=== PATIENT | female | born 1950 | race Caucasian/White ===

== ENCOUNTER 2019-06-14 20:00 | Inpatient (IN) | payer MEDICARE, OTHER, MEDICAID ==
[~2019-06-14] VITALS: Ht 170.2 cm; Wt 100.7 kg
[~2019-06-14 20:00] MED LIST: ALEVE220 MG PO; APAP W/CODEINE1 TA2 PO; AZITHROMYCIN 2250 MG PO; B COMPLEX1 EAC1 PO; CALCIUM 600 +1 EAC1 PO; CARVEDILOL3.125 MG PO; CIPRO500 MG PO; COLCHICINE0.6 M1 PO; FLEXERIL PO; GLUCOSAMINE HC500 MG PO; HYDROCODON-ACE1 EAC7 PO; IBUPROFEN 600600 M1 PO; INDOMETHACIN 2525 MG PO; IRON325 PO; KLOR-CON 1010 MEQ PO; LASIX 40 MG TAB40 M2 PO; LEVAQUIN 500 M500 M2 PO; LISINOPRIL5 MG PO; METHOTREXATE 22.5 MG PO; OXYCODONE HCL 55 MG PO; OXYCODONE HCL15 MG PO; PAXIL10 MG PO; PERCOCET PO; PREDNISONE 10 M10 M1 PO; ROXICODONE5 M1 PO; TYLENOL325 MG PO; ULTRAM 50MG TAB50 MG PO; ULTRAM PO; UNICOMPLEX M TA1 TA1 PO; ZPAK PO
[2019-06-14 20:14] VITALS: BP 191/81
[2019-06-14 20:54] LABS: ABSOLUTE EOSINOPHILS 0.1 thou/uL (0.0-0.7); ABSOLUTE LYMPHOCYTES 1.6 thou/uL (0.8-5.3); ABSOLUTE MONOCYTES 0.6 thou/uL (0.0-1.2); ABSOLUTE NEUTROPHILS 3.6 thou/uL (1.6-8.1); BASOPHILS 0.3 %; HEMATOCRIT 35.8 % (37.0-47.0); HEMOGLOBIN 11.8 gm/dL (12.0-15.0); LYMPHOCYTES 26.6 %; MCH 27.2 pg (26.0-34.0); MCHC 32.9 g/dL (28.0-37.0); MCV 82.8 fL (80.0-100.0); MONOCYTES 10.1 %; MPV 8.7 fl. (7.2-11.1); NUCLEATED RBCS 0 /100WBC; PLATELET COUNT* 207 thou/uL (150-400); RBC 4.32 mil/uL (4.20-5.00); WBC 5.9 thou/uL (4.0-11.0)
[2019-06-14 21:01] LABS: CALCIUM 9.6 mg/dL (8.5-10.1); CREATININE 0.7 mg/dL (0.6-1.3); POTASSIUM 3.7 mmol/L (3.5-5.1)
[2019-06-14 21:06] LABS: ALBUMIN 3.2 g/dL (3.4-5.0); TOTAL BILIRUBIN 0.3 mg/dL (<0.1-1.0); TOTAL PROTEIN 8.5 g/dL (6.4-8.2)
[2019-06-14 22:09] LABS: ESR (SEDRATE) 80 mm/hr (0-30)
[2019-06-14 23:12] VITALS: BP 195/93
[2019-06-15] VITALS: BP 148/82
--- NOTE | 2019-06-15 07:40 | NUR ---
PT RECIEVED FROM ED IN ROOM 315. ALERT AND ORIENTED X4 BUT IS ANXIOUS. C/O PAIN, MEDICATIOIN GIVEN PER EMAR. CALL LIGHT WITHIN REACH AND BED IN LOW POSITION. PICTURE TAKEN OF RT ANKLE AND PLACED IN CHART. PT IS WEARING DIAPERS, REFUSES TO TAKE IT OFF, EDUCATION GIVEN, NEEDS REINFORCEMENT. HOURLY ROUNDING DONE FOR PT SAFETY.
--- NOTE | 2019-06-15 11:51 | NUR ---
INITIAL ASSESSMENT: Pt evaluated for d/c planning needs. Reviewed chart and spoke with nurse and pt. Pt is alert. Pt states she lives alone in house and was independent with ADL's prior to admission to the hospital. Pt said she uses walker or cane for ambulation. Found phone number listed in chart for daughter. Called number listed--it is not a working number. Called phone number listed for pt's mother with no answer. Pt has history of bipolar disorder, depression and schizophrenia. Will remain available to assist as needed and make further attempts to find family.
[2019-06-15 15:00] VITALS: BP 149/60
--- NOTE | 2019-06-15 17:12 | NUR ---
PT REMAINED ALERT AND ORIENTED. PT C/O PAIN, MEDS GIVEN ORDERED. PT C/O CHEST PAIN, LABS AND EKG ORDERED. AWAITING LAB RESULTS, EKG NORMAL. PT REFUSED BLOOD PRESSURE TO BE TAKEN. ATTEMPTED BP AGAIN MANUALLY. PT WOULD NOT STAY STILL AND CRIED, BP READ. PT HAS BEEN TEARFUL ALL DAY, WILL ATTEMPT TO SWAB ANKLE AND APPLY PRESSURE DRESSING. FALL RISK PRECAUTIONS IN PLACE. HOURLY ROUNDING COMPLETED. WILL CONTINUE TO MONITOR.
[2019-06-15 20:05] VITALS: BP 179/78
--- NOTE | 2019-06-15 23:07 | NUR ---
PATIENT REFUSED CT SCAN ORDERED STAT BY DR NELSON. SHE REFUSES TO GET OUT OF BED AND TRY TO GET TO THE WHEELCHAIR AND BECAME EXTREMELY AGITATED. I CALLED DR NELSON AT 2300 AND LET HER KNOW.
[2019-06-16 04:55] VITALS: BP 128/78
[2019-06-16 05:14] LABS: HEMATOCRIT 36.1 % (37.0-47.0); HEMOGLOBIN 11.7 gm/dL (12.0-15.0); MCH 26.9 pg (26.0-34.0); MCHC 32.5 g/dL (28.0-37.0); MCV 82.8 fL (80.0-100.0); MPV 9.2 fl. (7.2-11.1); RBC 4.36 mil/uL (4.20-5.00); RDW-CV 15.4 % (10.5-14.5); WBC 7.5 thou/uL (4.0-11.0)
[2019-06-16 05:22] LABS: ALBUMIN 2.9 g/dL (3.4-5.0); CALCIUM 9.2 mg/dL (8.5-10.1); CREATININE 0.6 mg/dL (0.6-1.3); MAGNESIUM 2.1 mg/dL (1.8-2.4); POTASSIUM 3.8 mmol/L (3.5-5.1); TOTAL BILIRUBIN 0.6 mg/dL (<0.1-1.0); TOTAL PROTEIN 8.4 g/dL (6.4-8.2)
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
[2019-06-16 16:00] VITALS: BP 165/85
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
[2019-06-16 21:12] VITALS: BP 173/86
[2019-06-17 03:58] LABS: HEMATOCRIT 32.6 % (37.0-47.0); HEMOGLOBIN 10.7 gm/dL (12.0-15.0); MCH 27.2 pg (26.0-34.0); MCHC 32.8 g/dL (28.0-37.0); MPV 9.3 fl. (7.2-11.1); RBC 3.93 mil/uL (4.20-5.00); RDW-CV 15.3 % (10.5-14.5); WBC 6.1 thou/uL (4.0-11.0)
[2019-06-17 04:28] LABS: CALCIUM 8.9 mg/dL (8.5-10.1); CREATININE 0.6 mg/dL (0.6-1.3); POTASSIUM 3.7 mmol/L (3.5-5.1)
--- NOTE | 2019-06-17 05:14 | NUR ---
PT WAS ANXIOUS AT TIMES BUT NOT MUCH THE NIGHT BEFORE. SHE DID RECEIVE PAIN MEDICATION Q6 AND 1 DOSE OF MORPHINE 4MG AT 0130. SHE SAT ON THE SIDE OF BED OFTEN SHE SAID THIS HELPED WITH HER BREATHING AND CHEST PAIN. SHE STILL REPORTS PAIN AT 10/10. EDEMA IS IMPROVING AND SHE RECEIVED HER VANCOMYCIN DOSE OVERNIGHT. SHE REMAINED CALM MOST OF THE NIGHT AND WAS ABLE TO SLEEP OFF AND ON. WILL CONTINUE TO MONITOR.
[2019-06-17 07:20] VITALS: BP 180/100
--- NOTE | 2019-06-17 13:42 | NUR ---
Nutrition: Pt admitted with ankle ulcer. She stated she has had it for 3 years. She eating well. She takes myriad MVI supplements. Albumin is 2.9. We discussed adding a protein supplement, and she agreed to Luis TID. She told me a bit about her diet at home. Educated on benefits of Luis and wound healing. Mild risk at this time. Will f/u per protocol.
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
[2019-06-17 16:00] VITALS: BP 171/71
--- NOTE | 2019-06-17 18:44 | NUR ---
ASSESSMENT COMPLETE. PT HAD WOUND CARE WITH WOUND RN. MRI OF ANKLE COMPLETED THIS AFTERNOON. PRN PAIN MEDICATION GIVEN NEEDED. PT GIVEN IV VANC SCHEDULED, TROUGH COMPLETED. KPAD STARTED FOR PAIN CONTROL, RELIEF REPORTED. MEDICAL RECORD REQUESTS SENT. PT INCONT. LEGS ELEVATED. PT IS ON ROOM AIR, VSS. TOLERATING MEALS. SEE ASSESSMENT AND VITALS FOR OTHER DETAILS. CALL LIGHT WITHIN REACH. WILL CONTINUE PLAN OF CARE
[2019-06-17 20:46] VITALS: BP 152/69
[2019-06-18 04:57] LABS: HEMATOCRIT 31.4 % (37.0-47.0); HEMOGLOBIN 10.3 gm/dL (12.0-15.0); MCH 27.1 pg (26.0-34.0); MCHC 32.8 g/dL (28.0-37.0); MCV 82.5 fL (80.0-100.0); MPV 9.2 fl. (7.2-11.1); RBC 3.81 mil/uL (4.20-5.00); WBC 6.5 thou/uL (4.0-11.0)
[2019-06-18 05:13] LABS: ALBUMIN 2.1 g/dL (3.4-5.0); CALCIUM 8.4 mg/dL (8.5-10.1); CREATININE 0.6 mg/dL (0.6-1.3); MAGNESIUM 1.9 mg/dL (1.8-2.4); POTASSIUM 3.7 mmol/L (3.5-5.1); TOTAL BILIRUBIN 0.6 mg/dL (<0.1-1.0); TOTAL PROTEIN 6.8 g/dL (6.4-8.2)
--- NOTE | 2019-06-18 06:31 | NUR ---
VSS RA. MEDS GIVEN ORDERED. MORPHINE AND OXY IR GIVEN FOR PAIN EVERY 4 HOURS PER PT REQUEST. LEGS ELEVATED ON PILLOW. DRESSING INTACT. HOURLY ROUNDING COMPLETED. WILL CONTINUE TO MONITOR.
[2019-06-18 07:41] VITALS: BP 146/69
--- NOTE | 2019-06-18 08:36 | EKG ---
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1950 Requested By: Nina Guo Order Number: [id number] Reading MD: Ramesh Serrano Measurements Intervals [place] Rate: 93 P: 60 IA: 143 QRS: 46 QRSD: 87 T: 50 QT: 341 QTc: 425 Interpretive Statements Sinus rhythm Atrial premature complex Abnormal R-wave progression, early transition Compared to ECG 09/10/2015 12:22:44 Atrial premature complex(es) now present ST (T wave) deviation no longer present Myocardial infarct finding no longer present Electronically Signed On 06-18-2019 8:36:12 CDT by Ramesh Serrano [email or web address] <ELECTRONICALLY SIGNED> By: Ramesh Serrano MD, FACC 06/18/19 0836 1646 1646 Ramesh Serrano MD, FAC /EPI
--- NOTE | 2019-06-18 17:01 | NUR ---
ASSESSMENT COMPLETE. WOUND CARE COMPLETE. DR CORONA CONSULT. NEW IV PLACED IN LEFT FA BY INFUSION NURSE. PT IS ON ROOM AIR, VSS. Q2 TURN. INCONT OF URINE. PAIN MEDICATION GIVEN NEEDED. PT TOLERATING MEALS, DENIESN N/V. SEE ASSESSMENT AND VITALS FOR OTHER DETAILS. CALL LIGHT WITHIN REACH, WILL CONTINUE PLAN OF CARE
[2019-06-18 23:45] VITALS: BP 158/77
--- NOTE | 2019-06-19 07:01 | NUR ---
PATIENT SLEPT MOST OF THE NIGHT. IV VANC WAS GIVEN ORDERED. PATIENT WAS GIVEN PAIN MEDICINE ABOUT EVERY THREE HOURS. DRESSING TO RIGHT ANKLE WAS CHANGED THIS MORNING BY SURGERY RESIDENT. WILL CONTINUE TO MONITOR.
[2019-06-19 08:10] VITALS: BP 142/70
--- NOTE | 2019-06-19 12:01 | CON ---
[address] [address] CONSULTATION Name: PRISCILLA MURCIA Room: [address] IN M.R.#: [id number] Admission: 06/14/19 Attend Phys: Stanley Barnes MD Discharge: Date of : 54 Report #: [id number] THIS REPORT FOR: //name// CC: Stanley Merino DATE OF SERVICE: 06/18/2019 INFECTIOUS DISEASE CONSULTATION ATTENDING PHYSICIAN: Dr. Guo. REASON FOR EVALUATION: Chronic ulceration involving the lateral malleolus, right ankle, complicated by inflammatory eruption. HISTORY OF PRESENT ILLNESS: Chart reviewed, patient examined. This is a 69-year-old woman with known history of rheumatoid arthritis, who has got this severe crippling disease, particularly involving her hands. She has been on methotrexate for an extended period of time, and developed an ulcer that she dates back at least 3 years. She does not recall any antecedent injury. She attributes it to the arthritis and its complications, perhaps related to the medicine as well. She has been utilizing some topical therapy; however, it became increasingly painful for her, so she eventually sought help. She presented to the Emergency Room noting that it had worsened over the last couple of months including increasing in size. She does take narcotic analgesics for pain. It is not clear if she has had any fever or chills. She states she eats very organic diet. Weight has been relatively stable. Denies any pulmonary complaints, although she does have some chest or epigastric discomfort with deep breathing. She was empirically started on antimicrobials, ceftriaxone and vancomycin. ALLERGIES: None known. CURRENT MEDICATIONS: Include oxycodone, buspirone, tramadol, vancomycin, ceftriaxone, p.r.n. analgesics, and antiemetics. PAST MEDICAL HISTORY: As noted above, rheumatoid arthritis, history of TIAs, palpitations, anxiety, bipolar disease, schizophrenia. SOCIAL HISTORY: Nonsmoker, no ethanol, no illicit drug use. FAMILY HISTORY: Noncontributory. REVIEW OF SYSTEMS: Otherwise unremarkable with the exception of the above. PHYSICAL EXAMINATION: [place] [address] CONSULTATION Name: PRISCILLA MURCIA Room: [address]#: [id number] Admission: 06/14/19 Attend Phys: Stanley Barnes MD Discharge: Date of : 54 Report #: [id number] GENERAL: She is alert, cooperative, and appropriate. She has somewhat tangential thinking. She is quite lucid. She is pleasant, cooperative, appears to be reasonably well nourished. VITAL SIGNS: Temperature 97.8, pulse 80, respirations 14, blood pressure 146/69. SKIN: Warm, dry. HEENT: Normocephalic. Extraocular muscles intact. NECK: Supple. LUNGS: Generally clear to auscultation. HEART: Regular. I do not appreciate any murmur. ABDOMEN: Soft. EXTREMITIES: I did inspect her ulceration. She got a somewhat irregular margin of the ulcer involving the right lateral malleolus. A moderate degree of debris and exudate, it is adherent slough, there is some degree of granulation tissue. Margins are moderately erythematous, is quite tender to palpation. She has clear deformities of her hands in particular due to the rheumatoid arthritis, subluxations. LABORATORY AND X-RAY DATA: Electrolytes: Sodium 137, potassium 3.4, chloride 102, bicarbonate is 26, BUN and creatinine 8 and 0.6, glucose of 101. Albumin is 2.1. Total protein 6.8. CBC: White count 6.5, H and H 10.3 and 31.4, platelets of 182. Right ankle MRI showed a large shallow ulcer on the lateral aspect of the ankle without underlying evidence of abscess or osteomyelitis. CTA chest, PE protocol, no evidence of pulmonary embolus. ASSESSMENT AND PLAN: Chronic ulceration of the right lateral malleolus ____ exclude an infectious process, although she is somewhat resistant to a general approach. She is agreeable to IV antibiotics, which we will continue for the moment. She voices likelihood that she would not take oral antibiotics on discharge. She at this point refused surgical debridement. Try some topical therapy. Seemingly, she has a reasonably good diet. Try to optimize her nutritional status. Continue compression, it may help in terms of working at the margins. <ELECTRONICALLY SIGNED> By: Alejo Betts MD 06/19/19 1201 1046 [id number] Betts MD /nt
[2019-06-19 16:07] VITALS: BP 130/54
--- NOTE | 2019-06-19 19:39 | NUR ---
PATIENT RESTING IN BED. PATIENT IS UP TO DANGLE BY SELF. PATIENT REFUSES TO GET OUT OF BED TO CHAIR OR TO WALK. PATIENT REFUSED PHYSICAL THERAPY. PATIENT IS UP MAX ASSIST WITH GAIT BELT TO COMMODE. PTIENTHAD BOWEL MOVEMENT X 1, AND IS INCONTINENT OF URINE. PATIENT HAS COMPLAINTS OF CHRONIC ARTHRITIS PAIN, TREATED WITH OXYCODONE AND MORPHINE. PATIENT DENIES ANY NEEDS AT THIS TIME. CALL LIGHT WITHIN REACH.
[2019-06-20 00:01] VITALS: BP 127/61
--- NOTE | 2019-06-20 06:38 | NUR ---
PATIENT SLEPT MOST OF THE NIGHT. IV VANC WAS GIVEN ORDERED. PATIENT WAS GIVEN PAIN MEDICINE THREE TIMES THIS SHIFT. DRESSING TO R ANKLE WAS CHANGED THIS MORNING BY SURGERY RESIDENT. WILL CONTINUE TO MONITOR.
[2019-06-20 07:55] VITALS: BP 143/73
[2019-06-20 09:32] VITALS: BP 127/61
[2019-06-20 16:00] VITALS: BP 130/68
--- NOTE | 2019-06-20 16:41 | NUR ---
SW received consult and several messages about evaluation of SNF for pt. SW met with pt to discuss dc recommendation and pt said "that won't happen". Pt wants to refuse IV abx; SW spoke with Dr Betts who plans to transition to po abx at dc. SW discussed reasoning for SNF and pt said that she cannot go because she cannot pay for SNF and SW explained insurance pays for SNF stay as part of her Medicare benefits, but pt insists that she does not have insurance. Pt said that she needs to go home and pay her bills. Then pt asked SW what day it was and when told, pt said she needed her phone so SW provide pt phone to her and pt proceeded to look through her phone while SW discussed following up again with pt in the morning to continue to discuss safe dc planning and possible SNF placement. SW discussed with pt nurse; pt nurse stated that pt had agreed to possible SNF with Dr Guo earlier in the day.
--- NOTE | 2019-06-20 19:36 | NUR ---
PATIENT RESTING IN BED. PATIENT HAS COMPLAINTS OF CHRONIC ARTHRITIC PAIN, TREATED WITH MORPHINE AND OXYCODONE. PATIENT IV INFILTRATED AGAIN TODAY. PATIENT REFUSES PICC LINE, THOMPSON WITH INFUSION STARTED NEW IV. PATIENT REFUSED TO WORK WITH PHYSICAL THERAPY TODAY. PATIENT IS UP MAX ASSIST WITH GAIT BELT FOR TRANSFERS TO COMMODE. PATIENT REFUSES CHAIR. PATIENT DENIES ANY NEEDS AT THIS TIME. CALL LIGHT WITHIN REACH.
[2019-06-20 20:02] VITALS: BP 111/50
[2019-06-21 05:04] LABS: HEMOGLOBIN 10.3 gm/dL (12.0-15.0); MCH 26.6 pg (26.0-34.0); MCHC 32.2 g/dL (28.0-37.0); MCV 82.6 fL (80.0-100.0); MPV 9.2 fl. (7.2-11.1); RBC 3.88 mil/uL (4.20-5.00); WBC 4.9 thou/uL (4.0-11.0)
[2019-06-21 05:07] LABS: CALCIUM 9.3 mg/dL (8.5-10.1); CREATININE 0.6 mg/dL (0.6-1.3); MAGNESIUM 2.2 mg/dL (1.8-2.4)
--- NOTE | 2019-06-21 05:12 | NUR ---
PT SEEMED LESS ANXIOUS THAN PREVIOUS SHIFTS OVERNIGHT. SHE DID TAKE HER PAIN MEDS ON SCHEDULE AND PRN AND RECEIVED VANCOMYCIN. SHE WAS ABLE TO REST AND GET SOME SLEEP. HER MAIN CONCERN WAS WORKING WITH THERAPY TODAY AND THE PAIN SHE WILL FEEL. WE DISCUSSED PAIN MANAGEMENT AND IMPORTANCE OF GETTING UP/ WILL CONTINUE TO MONITOR
[2019-06-21 08:00] VITALS: BP 130/59
[2019-06-21] MEDS ORDERED: FLUCONAZOLE 10100 MG PO (09:05)
[2019-06-21] MEDS ORDERED: TRAMADOL 50 MG50 MG PO (09:05)
[2019-06-21] MEDS ORDERED: BUSPIRONE HCL5 MG PO (09:05)
[2019-06-21 10:43] VITALS: BP 127/61
[2019-06-21 15:51] VITALS: BP 141/57
[2019-06-21 16:40] VITALS: BP 127/61
[2019-06-21] MEDS ORDERED: AMOXICILLIN 50500 M1 PO (16:47)
--- NOTE | 2019-06-21 16:48 | NUR ---
Pt to dc to recommendation of SNF today; pt is now in agreement with plan for SNF after all. Pt okay with a facility in [place]. ALAN sent referral to [facility] and to [facility]. [facility] denied and [facility] accepted. ALAN sent final orders/dc summary to [facility]. Pt nurse aware and chart copied for continuation of care. ALAN arranged transportation through [employer] for [place]eps[place] pick[place] 5:30 to 6:00 pm. ALAN met with pt to discuss details of dc plan; pt okay with plan and expressed that she was anxious. ALAN informed pt nurse to follow up with pt. [facility] ph [phone]
--- NOTE | 2019-06-21 17:55 | NUR ---
PT A&OX4 VSS. WOUND DRESSING CHANGED TODAY. IV REMOVED, NO SWELLING/REDNESS AT SITE. PT DECLINED TRAMADOL, BUSPAR AND BENEDRYL PRIOR TO DC FROM THIS FLOOR. PT PUT ON HER DRESS WITHOUT ASSISTANCE. PT ASSISTED TO STAND WITH GAIT BELT AND WALKER. PT TRANSPORTED FROM UNIT IN WC WITH [employer] INSTALLER. PT LEAVES UNIT WITH ALL PERSONAL BELONGINGS. REPORT CALLED TO RONAL BETH AT [facility] [phone]. WOUND CARE INSTRUCTIONS GIVEN IN REPORT TO RONAL. PAPERWORK GIVEN TO [employer] INST[employer]ER.
== END 2019-06-21 15:47 | DRG 603 ==
LOC: M.ERS 20:00 → M.TBA-ER 21:58 → M.3W 21:58
PROVIDERS: Emergency Medicine; Internal Medicine; ADMIT Internal Medicine
DX: L03.115 Cellulitis of right lower limb (principal); R45.851 Suicidal ideations; L97.319 Non-pressure chronic ulcer of right ankle with unspecified severity; F41.9 Anxiety disorder, unspecified; M06.9 Rheumatoid arthritis, unspecified; F31.9 Bipolar disorder, unspecified; I87.2 Venous insufficiency (chronic) (peripheral); G89.29 Other chronic pain; B95.5 Unspecified streptococcus as the cause of diseases classified elsewhere; B96.89 Other specified bacterial agents as the cause of diseases classified elsewhere; F41.1 Generalized anxiety disorder; Z86.73 Personal history of transient ischemic attack (TIA), and cerebral infarction without residual deficits; Z79.899 Other long term (current) drug therapy

== ENCOUNTER 2021-02-05 16:44 | Inpatient (IN) | payer OTHER, MEDICAID ==
[~2021-02-05] VITALS: Ht 172.7 cm; Wt 99.8 kg
--- NOTE | ~2021-02-05 | CON ---
[address] [address] CONSULTATION Name: PRISCILLA MURCIA Room: [address]#: [id number] Admission: 02/05/21 Attend Phys: Nina Guo MD Discharge: 02/18/21 Date of : 54 Report #: [id number] THIS REPORT FOR: cc: Blaine Merino. Ratnesh. MD Claire Martinez Raymond M. DPM ~ DOC #: [id number] Chema Rangel MD DATE OF CONSULTATION: 02/08/2021 INTRODUCTION: This is a 71-year-old white female who has been admitted for a fall out of bed. I am actually seeing her for a chronic right leg ulcer. HISTORY OF PRESENT ILLNESS: This is a 71-year-old white female who has a chronic wound to the right lateral ankle, significant length in size x last 6 months at least. The patient is very combative with any type of discussion. She is very adamant about the type of treatment she would like to have and also seemingly especially combative to any physicians. She is asking for no physicians to see her because of the cost associated with any kind of evaluation. PAST MEDICAL HISTORY: Noted for rheumatoid arthritis, anxiety and heart palpitations. MEDICATIONS: Currently are fluconazole, Buspirone, and she says oxycodone 5 mg every 6 hours, but right now she is getting 15 mg every 6 hours. DISCONTINUED MEDICATIONS: Methotrexate and Bactrim. ALLERGIES: No known drug allergies. PREVIOUS SURGERIES: Unremarkable. FAMILY HISTORY: Noncontributory. SOCIAL HISTORY: The patient is currently living at home, is anti-Western medicine. Her default is God for her treatment plan. Social history includes no history of tobacco or alcohol or recreational drugs. PHYSICAL EXAMINATION: UPPER EXTREMITIES: ____ well established. LOWER EXTREMITIES: She has a wound on her right lateral ankle, approximately 12 x 5 cm, with significant amount of slough mixed with Iodosorb. The margins are well demarcated with mild erythema present and some [place] [address] CONSULTATION Name: PRISCILLA MURCIA Room: [address]#: [id number] Admission: 02/05/21 Attend Phys: Nina Guo MD Discharge: 02/18/21 Date of : 54 Report #: [id number] She also has disfigured fungal nails, 1 through 5, with the right hallux the most dramatic and possibly painful. She did not let me evaluate her at first, she was afraid for me to touch her or do anything with the dressing. LABORATORY DATA: Her white blood cell count was 8.7. X-rays of the foot are really unremarkable and noncontributory in this case. No arterial Dopplers were done, but may be needed. Cultures have been taken, but they have urine cultures and blood cultures. ASSESSMENT AND PLAN: The patient has what appears to be venous leg ulcers on the right side, with most likely a bioburden present. I have suggested a debridement in the OR that will be less painful for her. A bedside debridement was very painful for her and she does not want me to touch her bandage as it is, so a debridement would be not possible at bedside. I also think that an Apligraf application will be helpful, along with Unna boot to help with the venous stasis component. I would like to order arterial Dopplers and a venous Doppler as well. We did do a dressing change anyway today, which she let me do it. I cleaned it off and re-dressed it with Mepitel and a Webril or cast material and then followed by Kerchip and Liban bandage. ____ any pressure in this area causing the wound, will take the pressure off. She is adamant that there she has no pressure and she is able to watch for her leg 20/03. She deferred on any suggestions by myself to guide and get back with me. Dressing changes will be daily. No Iodosorb. MD BRIDGETTE Conrad/FESTUS/KAREN By: [id number] Rangel DPM /valeria
[~2021-02-05 16:44] MED LIST changes: +AMOXICILLIN 50500 M1 PO; +BUSPIRONE HCL5 MG PO; +FLUCONAZOLE 10100 MG PO; +TRAMADOL 50 MG50 MG PO
[2021-02-05 17:07] VITALS: BP 130/70
[2021-02-05 18:29] LABS: HEMATOCRIT 36.1 % (37.0-47.0); HEMOGLOBIN 11.9 gm/dL (12.0-15.0); MCH 26.6 pg (26.0-34.0); MCV 80.7 fL (80.0-100.0); MPV 9.4 fl. (7.2-11.1); NUCLEATED RBCS 0 /100WBC; PLATELET COUNT* 93 thou/uL (150-400); RBC 4.47 mil/uL (4.20-5.00); RDW-CV 15.2 % (10.5-14.5); WBC 8.7 thou/uL (4.0-11.0)
[2021-02-05 18:34] LABS: CALCIUM 8.9 mg/dL (8.5-10.1); CREATININE 0.8 mg/dL (0.6-1.3); POTASSIUM 3.6 mmol/L (3.5-5.1)
[2021-02-05 18:39] LABS: ALBUMIN 3.1 g/dL (3.4-5.0); TOTAL BILIRUBIN 0.5 mg/dL (<0.1-1.0); TOTAL PROTEIN 9.2 g/dL (6.4-8.2)
[2021-02-05 19:07] LABS: ABSOLUTE LYMPHOCYTES 5.7 thou/uL (0.8-5.3); ABSOLUTE MONOCYTES 0.6 thou/uL (0.0-1.2); ABSOLUTE NEUTROPHILS 2.3 thou/uL (1.6-8.1); ANISOCYTOSIS 1+; PLATELET ESTIMATE DECREASED
[2021-02-05 19:08] LABS: POLYCHROMASIA Occasional
[2021-02-05 21:08] VITALS: BP 171/102
[2021-02-05 21:30] VITALS: BP 168/75
[2021-02-06 04:48] VITALS: BP 163/75
--- NOTE | 2021-02-06 06:19 | NUR ---
PATIENT ARRIVED ON FLOOR FROM ER AT ABOUT 2100. PATIENT ADMISSION HISTORY AND ASSESSMENT WAS COMPLETED CHARTED. IV VANC WAS GIVEN ORDERED. R ANKLE WOUND WAS REDRESSED AND PICTURE PLACED ON CHART. BED ALARM IS ON FOR PATIENT SAFETY. WILL CONTINUE TO MONITOR.
[2021-02-06 08:00] VITALS: BP 134/74
[2021-02-06 16:00] VITALS: BP 137/76
--- NOTE | 2021-02-06 20:00 | NUR ---
DR FELDMAN STATED TO CONSULT ANOTHER PHYSICIAN HE WAS ON VACATION UNTIL MONDAY. DR GUERRERO'S NUMBER PROVIED TO THIS RN BY DELI BAKERY CLERK, CONSULT CALLED IN TO DR GUERRERO.
[2021-02-06 20:05] VITALS: BP 141/69
[2021-02-06 23:58] LABS: URINE BILIRUBIN NEGATIVE (Negative); URINE BLOOD NEGATIVE (Negative); URINE CLARITY CLEAR; URINE COLOR YELLOW; URINE GLUCOSE-RANDOM NEGATIVE (Negative); URINE KETONES NEGATIVE (Negative); URINE LEUKOCYTES-REFLEX 1+ (Negative); URINE NITRITE-REFLEX NEGATIVE (Negative); URINE PROTEIN NEGATIVE (Negative); URINE SPECIFIC GRAVITY 1.025 (1.005-1.030); URINE UROBILINOGEN 0.2 E.U./dl (0.2-1.0)
[2021-02-07 00:12] LABS: SQUAMOUS 0-3 Few /LPF (0-3)
[2021-02-07 00:13] LABS: BACTERIA-REFLEX >30 Many /HPF (None Seen); CASTS None Seen /LPF (None Seen); CRYSTALS None Seen /LPF (None Seen); MUCUS 4-6 Moderate strn/LPF (None Seen); URINE RBC 3-10 Few /HPF (0-2); URINE WBC-REFLEX 6-15 Few /HPF (0-5)
[2021-02-07 07:37] LABS: HEMOGLOBIN 10.6 gm/dL (12.0-15.0); MCH 26.9 pg (26.0-34.0); MCV 81.4 fL (80.0-100.0); MPV 9.9 fl. (7.2-11.1); RBC 3.93 mil/uL (4.20-5.00); RDW-CV 15.4 % (10.5-14.5); WBC 6.1 thou/uL (4.0-11.0)
[2021-02-07 08:13] LABS: CALCIUM 8.3 mg/dL (8.5-10.1); CREATININE 0.7 mg/dL (0.6-1.3); POTASSIUM 3.6 mmol/L (3.5-5.1)
[2021-02-07 09:00] VITALS: BP 154/85
--- NOTE | 2021-02-07 18:35 | NUR ---
PT. AOX4, VSS, CALL LIGHT AND PERSONAL BELONINGS PLACED WITHIN REACH. PRN PAIN MEDS ADMINISTERED, PAIN UNDER CONTROL, REFUSES VITAL SIGNS CHECKS AND WOUND CARE. R ANKLE WOUND COVER ED IN [facility], SEROUSANGUINOUS DRAINAGE NOTED. PT. ENCOURAGED OOB TO SIDE OR BED AND CHAIR, BUT REFUSED. MANAGING CONSULTANT CLINICAL PROFESSOR JENNIFER SPOKE TO PT AND ENCOURAGED COOPERATION WITH PLAN OF CARE. PURE WI EXTERNAL INCONTINENET DEVICE REMOVED PER PT REQUEST AND REPLACED WITH INCONT. BRIEFS. PT. REFUSING TURNS AT TIMES. PT. IN ROOM, APPEARS UPSET UNRELATED TO PAIN, AT SHIFT CHANGE. UNABLE TO COMPLETE WOUND PICS AND ASSESSMENT PT. REFUSED.
[2021-02-07] MEDS ORDERED: SUPER THERAVIT1 EACH PO (19:46)
[2021-02-07] MEDS ORDERED: CALCIUM + VITA1 EACH PO (19:47)
[2021-02-07] MEDS ORDERED: GLUCOSAMINE-CH1 EACH PO (19:48)
--- NOTE | 2021-02-07 20:05 | NUR ---
PT REFUSING TO ALLOW NURSING TO LOOK AT/ UNWRAP HER RT ANKLE OR CLEAN UP HER RT FOOT BECAUSE "IT HURTS TOO MUCH". SHE HAS BEEN REFUSING SOME MEDS AND CARES. SHE HAS STATED THAT SHE DOES NOT LIKE MEN. SHE CRIES FREQUENTLY.
[2021-02-07 23:04] VITALS: BP 135/63
[2021-02-08 04:00] VITALS: BP 165/60
[2021-02-08 04:24] LABS: HEMATOCRIT 33.2 % (37.0-47.0); HEMOGLOBIN 10.9 gm/dL (12.0-15.0); MCH 26.6 pg (26.0-34.0); MCHC 32.9 g/dL (28.0-37.0); MCV 80.9 fL (80.0-100.0); MPV 8.9 fl. (7.2-11.1); RBC 4.1 mil/uL (4.20-5.00); RDW-CV 15.4 % (10.5-14.5); WBC 7.3 thou/uL (4.0-11.0)
[2021-02-08 04:42] LABS: CALCIUM 8.4 mg/dL (8.5-10.1); CREATININE 0.6 mg/dL (0.6-1.3); POTASSIUM 3.7 mmol/L (3.5-5.1)
--- NOTE | 2021-02-08 04:51 | NUR ---
PT RUNNING A FEVER OF 101.9 AT 04:00 VITALS TIME. SHE IS REFUSING TYLENOL SAYING SHE GETS A RASH IF SHE TAKES IT; ALLERGY ENTERED IN MAR. SHE IS REFUSING TO TAKE A MED FOR HER FEVER STATING THAT " FEVER IS HER BODY'S WAY OF HELPING HER". WILL CONTINUE TO MONITOR HER TEMPERATURE.
--- NOTE | 2021-02-08 07:54 | NUR ---
PT IS ABLE TO COMMUNICATE HER NEEDS TO STAFF WITH MINOR DIFFICULTY; SHE CAN BE VERY UPSET AND CRYING AT TIMES AND IS DIFFICULT TO UNDERSTAND. CURRENT PAIN MEDICATION REGIMEN HAS BEEN MARGINALLY ADEQUATE FOR CONTROLLING HER PAIN UP TO 0700 THIS MORNING. SHE IS OFTEN UNCOOPERATIVE AND REFUSES MEDS, CARES, VITALS, ETC. FREQUENTLY.
[2021-02-08 08:00] VITALS: BP 140/90
--- NOTE | 2021-02-08 09:35 | NUR ---
WOUND NURSE: PATIENT SEEN TO ADDRESS 3 LESIONS ON BILATERAL FEET. RIGHT LATERAL ANKLE MEASURES 12.0 X 4.8 X 0.5 CM. CONTAINS RED, HYPERGRANULOMATOUS AND NONGRANULATING TISSUE APPROX 90% AND 10% YELLOW SLOUGH. THERE IS A LARGE AMOUNT OF YELLOW OPAQUE DRAINAGE FROM THIS WOUND. THE PERIWOUND TISSUE IS REDDENED AND WARM TO TOUCH, BUT WITHOUT INDURATION. RIGHT GREAT TOE IS TRAUMATIZED WITH DRIED BLOOD UNDERNEATH THE NAILBED. LEFT LATERAL ANKLE WITH BROWN PARTIALLY INTACT SCAB. NO ACTIVE DRAINAGE. NO PERIWOUND REDNESS, WARMTH, OR INDURATION. SCAB MEASURES 1.8 X 1.2 CM. PATIENT REPORTING SIGNIFICANT PAIN TO TOUCH ON RIGHT ANKLE WOUND. PATIENT INSTRUCTED ON MEASURES TO PROMOTE HEALING AND PREVENT COMPLICATIONS. PATIENT STATES SHE UNDERSTANDS.
--- NOTE | 2021-02-08 09:42 | NUR ---
CM ASSESSMENT: PT A&O, AND INDEPENDENT WITH ADL'S. PT RESIDES AT HOME ALONE. PT INFORMS THAT SHE IS ABLE TO PREPARE LITE MEALS FOR HERSELF AND THAT HER MOTHER COME ONCE A MONTH TO CLEAN HER HOME. PT USES WALKER FOR MOBILITY. PT HAS PAST HX OF SNF AT [facility] (MAY 2019). PT IS CURRENTLY ON-SERVICE WITH [facility]. CM TO CALL AND FAX [facility] A CLINCIAL UPDATE FOR PT AND WILL NEED ORDERS TO RESUME HH FOR PT WITH [facility] AT D/C. CM WILL REMAIN AVAILABLE TO ASSIST ANDF FOLLOW NEEDED. [facility] PHONE: [phone] FAX: [phone]
--- NOTE | 2021-02-08 19:19 | NUR ---
RECEIVED REPORT AROUND 0715. ASSUMED CARE. VS AND ASSESSMENT CHARTED. IV INTACT RIGHT AC. MED/SURG STATUS. MEDS GIVEN PER OCT. REPORT PAIN THROUGHOUT SHIFT. HOURLY ROUNDING PERFORMED. BATH GIVEN THIS SHIFT. ABLE TO SIT UP AT THE SIDE OF THE BED FOR MEALS. PT WAS VERY WORRIED ABOUT PHYSICAL THERAPY THIS SHIFT. TOLD THEY WOULND'T BE ABLE TO SEE TODAY. PT REQUESTED PT ADVOCATED. KYLAH WINKLER TALKED TO PT. PT UNDERSTANDING AFTERWARDS. PHYSICAL THERAPY AND OCCUPATIONAL THERAPY WILL SEE PT TOMORROW. HEATING PAD INTACT. PODIATRY SAW PT THIS SHIFT. WOUNDS DRESSED THIS SHIFT. CALL LIGHT WITH IN REACH.
[2021-02-08 20:01] VITALS: BP 147/76
[2021-02-09 04:37] LABS: HEMATOCRIT 33.8 % (37.0-47.0); HEMOGLOBIN 10.9 gm/dL (12.0-15.0); MCHC 32.2 g/dL (28.0-37.0); MCV 80.5 fL (80.0-100.0); MPV 9.2 fl. (7.2-11.1); RBC 4.19 mil/uL (4.20-5.00); RDW-CV 15.5 % (10.5-14.5); WBC 5.7 thou/uL (4.0-11.0)
--- NOTE | 2021-02-09 04:40 | NUR ---
ASSUMED PT CARE AT 1915. NURSING ASSESSMENT COMPLETED AT START OF SHIFT. PRN PAIN MEDICATION ADMINSTERED/ SEE EMAR FOR DOCUMENTATION. HOURLY ROUNDING COPLETED. Q2H REPOSITIONING COMPLETED. CALL LIGHT WITHIN REACH.
[2021-02-09 04:49] LABS: CALCIUM 8.5 mg/dL (8.5-10.1); CREATININE 0.6 mg/dL (0.6-1.3); POTASSIUM 3.4 mmol/L (3.5-5.1)
[2021-02-09 08:03] VITALS: BP 138/72
--- NOTE | 2021-02-09 10:20 | NUR ---
WOUND NURSE: SPOKE WITH PATIENT THIS MORNING FOR FOLLOW UP ASSESSMENT AND PATIENT REPORTED THAT SHE DOESN'T WANT DR. GUERRERO HER DOCTOR. SHE STATED SHE DID NOT LIKE HIS BEDSIDE MANNER WHEN SPEAKING TO HER YESTERDAY AND THAT HE ORDERED [facility] WITHOUT EXPLAINING TO HER WHY AND THIS UPSET HER. EXPLAINED TO HER THAT [facility] WERE TO GAIN MORE INFORMATION PERTAINING TO HER WOUND. I SPOKE WITH DR. RAMSEY AND EXPLAINED THE SITUATION AND SHE APPROVED PATIENT TO BE SEEN BY A DIFFERENT PHYSICIAN AT THE PATIENT'S REQUEST. I EXPLAINED TO PATIENT THAT WE ARE HERE TO SUPPORT HER AND WILL RESPECT THE DECISIONS SHE MAKES PERTAINING TO HER WOUNDS.
--- NOTE | 2021-02-09 13:28 | NUR ---
PATIENT WAS SEEN BY DR. SHWETHA DPM AROUND 11:00 AM AND PROVIDED WOUND ASSESSMENT AND INTERVENTION, INCLUDING NAIL TRIM AND NAIL REMOVAL OF LOOSE RIGHT GREAT TOE NAIL. DR. TADEO ALSO OBTAINED WOUND AEROBIC AND ANEROBIC CULTURES. DRESSING WAS REAPPLIED PRESCRIBED BY THIS NURSE ON RIGHT ANKLE AND SWABBED GREAT TOENAIL WITH BETADINE SWAB. DR. TADEO PLANS TO FOLLOW PATIENT IN CLINIC AFTER DISCHARGE. PATIETN TO CONTINUE WITH [facility] FOR IN HOME DRESSNG CHANGES. PATIENT IS HAPPY AND SATISFIED WITH CARE PROVIDED AND CURRENT POT.
--- NOTE | 2021-02-09 13:41 | NUR ---
PLAN OF CARE: PHYSICIAN INFORMS THAT PT FIRED PODIATRY, AND REQUESTED NEW CONSULT. NEW PODIATRY CONSULT PENDING RECCOMENDATIONS. PT/OT EVALS PENDING. PT PLANS TO RETURN HOME AND RESUME HH WITH [facility] AT D/C. CM WILL REMAIN AVAILABLE TO ASSIST AND FOLLOW NEEDED.
--- NOTE | 2021-02-09 19:52 | NUR ---
Pt reamined A&O x4 for entire shift. Vital signs stable. Pt stated this morning that she wants to make sure that she gets up with therapy today. When Occupational therapy came to work with the patient, the patient refused to try and get out of bed stating that she would do it tomorrow. Pt seen by Dr Holloway and tolerated dressing change and culture swab well. Pt educated thoroughly on each and every procedure and medication by all staff members. Pt pleasant with staff just sceptical at times and needing education. Pt complained of pain usually rating 8-10. Pt given meds per OCT. Pt slept for about 2 hours this afternoon. Bed in low position, call light within reach.
[2021-02-09 23:53] VITALS: BP 140/80
[2021-02-10 08:00] VITALS: BP 142/80
[2021-02-10 16:00] VITALS: BP 144/92
--- NOTE | 2021-02-10 16:21 | NUR ---
PLAN OF CARE: PHYSICIAN INFORMS OF PLAN FOR THE PT TO REMAIN INPT FOR AT LEAST 2 MORE DAYS. WOUND CULTURES REMAIN PENDING AND WILL BE NEEDED TO DETERMINE ABT COVERAGE. PLAN FOR THE PT TO RETURN HOME AT D/C AND RESUME HH WITH [facility] AT D/C. CM WILL REMAIN AVAILABLE TO ASSIST AND FOLLOW NEEDED.
--- NOTE | 2021-02-10 18:53 | NUR ---
RECEIEVED REPORT AROUND 0715. ASSUMED CARE. VS AND ASSESSMENT CHARTED. NEW IV INSERTED BY [facility] INFUSION NURSE. RIGHT FOREARM. PICC TO BE PLACED IN THE AM. PT WILL BE GOING DOWN TO JOINT AND SPINE AT SHIFT CHANGE TO ROOM 111. MEDS GIVEN PER OCT. HOURLY ROUNDING PERFORMED. PT AND OT WORKED WITH PT THIS SHIFT. PAIN MEDS PER OCT. Q2 TURNS TOLERATED. HEATING PAD INTACT. PURWICK PER PT REQUEST INTACT. CALL LIGHT WITH IN REACH. WILL CONTINUE TO MONITOR.
--- NOTE | 2021-02-11 08:21 | NUR ---
PATIENT SLEPT MOST OF THE NIGHT. PATIENT WAS GIVEN PAIN MEDICINE TWICE THIS SHIFT. PATIENT STATES SHE IS LEAVING TODAY. PATIENT DID REFUSE LABS AND VITAL SIGNS. WILL CONTINUE TO MONITOR.
--- NOTE | 2021-02-11 11:34 | NUR ---
WOUND NURSE: PATIENT SEEN FOR FOLLOW UP ASSESSMENT PERTAINING TO WOUNDS. RIGHT LATERAL MALLEOLUS VLU MEASURES 11.0 X 4.3 X 0.4 CM. CONTAINS RED GRANULATION AND NONGRANULATION TISSUE. PERIWOUND REDNESS HAS IMPROVED. MORE SEROUSANGUINOUS DRAINAGE AND LESS YELLOW OPAQUE ON OLD DRESSING. PATIENT WITHOUT COMPLAINTS OF PAIN WITH THIS WOUND. RIGHT GREAT TOE SITE OF NAIL REMOVAL IS CLEAN AND DRY WITH THIN RED CRUST IN PLACE. LEFT DORSAL FOOT WOUND WITH PARTIAL SCAB, PARTIAL RED NONGRANULATIONG TISSUE IN THE WOUND BED, SMALL AMOUNT OF SEROUSANGUINOUS DRAINAGE. ALL DRESSINGS CHANGED PRESCRIBED, WOUNDS MEAUSURED AND PHOOGRAPHED. PATIENT DISCHARGING TODAY WITH HOME HEALTH AND ORAL ANTIBIOTICS.
[2021-02-11 12:34] VITALS: BP 144/92
--- NOTE | 2021-02-11 12:36 | NUR ---
Pt discharging to home today with [facility]. Pt refusing picc line, plan to transition to oral abx prior to dc. Pt has a wound care appt here on Monday at 1pm per wound nurse.
--- NOTE | 2021-02-11 18:49 | NUR ---
PT REFUSED ALL LAB DRAWS AND PICC LINE PLACEMENT AND BLOOD PRESSURE. PT HAS SALINE LOCK IN HER RIGHT FOREARM THAT IS USED FOR ANTIBIOTICS. PT WILL GET PICC LINE PLACEMENT TOMORROW AM FOR [employer] HELPER ANTIBIOTICS. VSS AFEBRILE. WILL CONTINUE TO MONITOR PLAN OF CARE.
--- NOTE | 2021-02-12 05:46 | NUR ---
PATIENT SLEPT MOST OF THE NIGHT. IV INFILTRATED. PATIENT IS TO GET PICC LINE TODAY. DRESSING TO R ANKLE REMAINS INTACT. PATIENT WAS GIVEN PAIN MEDICINE NEEDED. PATIENT IS POSSIBLY DISCHARGING TODAY WITH HOME HEALTH. WILL CONTINUE TO MONITOR.
--- NOTE | 2021-02-12 09:15 | NUR ---
Faxed referral for [facility] (F: [phone]) and faxed auth request to [facility] for [facility] (F: [phone]). Will await follow up response for SNF placement. CM to continue to follow for safe dc planning
--- NOTE | 2021-02-12 11:10 | NUR ---
WOUND NURSE: PRESENT WITH PATIENT WHEN SHE WAS REASSESSED AND DRESSING WAS CHANGED BY DR. Juanita TADEO, DPM. PATIENT REFUSING PICC PLACEMENT DESPITE NEED FOR IV ABX AND BEING INFORMED BY OF SERIOUS HEALTH RISKS IF SHE CONTINUES TO REFUSE. PATIENT STATED TO DR TADEO THAT SHE WANTS TO . PATIENT SEEMS VERY ANXIOUS AND DELUSIONAL BEHAVIOR, I.E. PARANOID ARGUING HER MOTHER TRYING TO FIND OUT INFORMATION ON HER, HAVING [address] COMMUNICATION WITH GOD. REAPPROACHED PATIENT REGARDING CONSENT FOR PICC, AND AGAIN SHE REFUSED STATING, "I WENT TO [facility] F[facility] AND HE SAID NO."
--- NOTE | 2021-02-12 11:58 | NUR ---
Pt refusing picc and ivabx. Dr davies, Pt is A&O, understands the risks of not taking ivabx. Plan dc to home today, Pt will leave AMA.
--- NOTE | 2021-02-12 17:37 | NUR ---
PT A&OX4 VSS. DRESSING TO L ANKLE C/D/I. WOUND NURSE AND DR TADEO CHANGED DRESSING THIS SHIFT. PT CONTINUES TO REFUSE PICC ACCESS AND IV ABX. PO ATIVAN ADMINISTERED X1. TELEPSYCH CONSULT ORDERED BY DR TADEO. FOLLOWING ASSESSMENT, PT MADE 1:1 FOR HER SAFETY. PT ROOM AND BELONGINGS SECURED WITH SECURITY ASSISTANCE, DR RAMSEY AT BEDSIDE. PT CONTINUES TO REFUSE VENOUS ACCESS AND IV ABX, DR RAMSEY AWARE. PT RESTS IN BED, NURSING STAFF IN ROOM ORDERED. SAFETY PRECAUTIONS REMAIN IN PLACE. WILL CONTINUE TO MONITOR.
--- NOTE | 2021-02-12 19:31 | NUR ---
attempted to reach family via numbers on face sheet and spokesperson documentation, unable to reach anyone. dr. kline aware. cm notified. 96 hour hold paperwork filled out for consideration by the court. zenobia ellis updated.
--- NOTE | 2021-02-12 23:00 | NUR ---
PT RESTING QUIETLY IN BED WITH SITTER IN ROOM. PT CALM UPON ENTERING ROOM. I ASKED PT IF I COULD TAKE HER VITAL SIGNS, "NOT BY BLOOD PRESSURE BECAUSE THAT HURTS". SHE WAS COOPERATIVE WITH OTHER VITAL SIGNS AND LIMITED ASSESSMENT. NO IV ACCESS. I TALKED WITH HER ABOUT NEEDING AN IV FOR HER ABX TO HELP HEAL HER LEG WOUNDS. SHE STATES SHE DOES NOT WANT AN IV, DOES NOT WANT ABX. "I JUST WANT TO TRAVEL THE COUNTRY AND SEE THE SITES AND THEN ." SHE IS ALERT AND ORIENTED TO PERSON, PLACE AND SITUATION. SHE BECOMES IRRITATED WITH THESE QUESTIONS "WHATS WITH ALL THE QUESTIONS, I WISH YOU PEOPLE WOULD QUIT TREATING ME LIKE A CHILD OR AN AIRHEAD." GOES ON TO SAY SHE IS ANGRY THAT "THEY" TOOK HER PHONE AND HER GLASSES, AND HAS TO HAVE WOOD MILLER IN THE ROOM. I ASKED HER ABOUT ANY FAMILY MEMBERS I COULD CONTACT FOR HER. "I DONT WANT THEM TO KNOW IM HERE OR ANYTHING THATS GOING ON." SHE ALSO STATES HER DAUGHTER IS COMING TOMORROW TO BRING HER GLASSES AND AUTOMOTIVE PARTS PERSON A CHECK THAT NEEDS TO GO TO THE BANK. SHE STATES THAT SHE DOESNT TRUST PEOPLE, "I DONT TRUST ANYBODY ON THIS SIDE, NONE OF MY FAMILY. WHEN YOUVE BEEN TO THE OTHER SIDE YOU WANT TO GO BACK THERE, YOU CAN TRUST PEOPLE THERE. AND YES I AM TALKING ABOUT AN OUT OF BODY EXPERIENCE. IT WAS SO BEAUTIFUL THERE. ANYBODY WHO HAS BEEN THERE WOULD WANT TO GO BACK." SHE STATES SHE HAS BEEN IN PAIN FOR 30 YEARS AND SHES TIRED OF BEING IN PAIN AND WANTS TO TRAVEL AND THEN AND GO TO "THE OTHER SIDE." PT ALLOW US TO TURN HER, CHANGE GOWNS AND LINENS THAT ARE SATURATED DUE TO INCONTINENCE-PURWICK DISPLACED. NEW PURWICK PLACED AFTER CORKY CARE DONE. PT APPRECIATIVE. WARM K PAD TO L SHOULDER AND ARM. PT ASKS SITTER IF HE IS A "MAN", STATES "I DONT WANT A MAN IN HERE, I DONT TRUST MEN, THEY ARE THE SOURCE OF ALL MY PROBLEMS." FEMALE INTEGRATION ARCHITECT NOW IN ROOM 1:1. PT STATES SHE IS NOT GOING TO EAT ANYTHING UNTIL "YOU ALL GIVE ME MY STUFF BACK AND I AM ON MY WAY OUT THE DOOR TO GO HOME." DRSGS CDI TO BLE. CALL LITE IN EASY REACH, BED ALARM ON.
--- NOTE | 2021-02-13 06:52 | NUR ---
AFTER INITIAL INTERACTION WITH PT SHE SLEPT WELL OVERNIGHT QUIETLY WITHOUT COMPLAINTS. SITTER IN ROOM. NO IV ACCESS. ON CONTACT ISOLATION FOR MRSA AND PSEUDOMONAS IN LEG WOUNDS. REFUSING NEEDLESTICKS, IV AND LABS, NO BP. TELEPSYCH EVAL PERFORMED YESTERDAY AND 96HOUR HOLD IN PROGRESS. PT STATES SHE DOESNT TRUST HER FAMILY AND DOES NOT WANT THEM TO KNOW ANY INFORMATION. CATRACHITA CDI TO BLE. CHAUHAN ON AND OPERATING.
--- NOTE | 2021-02-13 12:31 | NUR ---
attempted to reach mother via phone number listed. no response. vm full.
--- NOTE | 2021-02-13 14:41 | NUR ---
spoke with patient's mom (also names grant elizabeth). patient's mom is 88yo and [place]. She forgot her phone in the car, and she didn't get our previous phone calls. She states that the patient would never hurt herself because it is against her jainism. She has not wanted to live for years due to her chronic pain and other issues. She is not close to her children, so they are not a support system for her. Per mom she's never tried to hurt herself, and she doesn't have a mental health history, including bipolar, schizophrenia or depression. She does not have a guardian or DPOA.
--- NOTE | 2021-02-13 16:00 | NUR ---
spoke with patient's daughter ivy and son in law. daughter unaware of change in status d/t wrong number given upon admission. explained to family that we were unable to convince the patient to give us her family's information. daughter spoke at length with patient to convince her to put an iv in, even threatening to end her relationship with her. dgtr reports chronic pain because she didnt have insurance when she was younger and didn't care for herself well and is now "dealing with the consequences." per dgtr both patient and mom are devoutly oriental orthodox and "talk to God and God talks to them on a regular basis." she states that suicide is against the oriental orthodox episcopalian; therefore "she won't commit suicide because she wouldn't go to [facility]." daughter reports she does not know of any hx of schizophrenia or bipolar. states she's been depressed since last year. she had finally qualified for knee replacement surgery, and she was so excited. then covid happened and she got an infection. therefore, they cancelled the surgery. patient lives on own but primarily stays in bed. she does her own cares though. she had been working on moving around more in the house. dgtr states being here is making her down because she's getting weak. agueda rn plans to address pt/ot with provider. she has family/friends/evangelical family that check on her 4-5x a week. patient has an "inverted bladder" and prefers not to sit but wears briefs. dgtr would like to be present for picc insertion if patient agrees. left message for internal wholesaler. dgtr also willing to help with infusions at home, if allowed, so patient can go home. patient will not go to [facility] again. names/numbers updated in authorized contact intervention.
[2021-02-14 03:38] LABS: CALCIUM 8.3 mg/dL (8.5-10.1); CREATININE 0.9 mg/dL (0.6-1.3); POTASSIUM 3.4 mmol/L (3.5-5.1)
[2021-02-14 03:58] LABS: HEMATOCRIT 37.6 % (37.0-47.0); HEMOGLOBIN 12.4 gm/dL (12.0-15.0); MCHC 32.9 g/dL (28.0-37.0); MCV 78.9 fL (80.0-100.0); RBC 4.76 mil/uL (4.20-5.00); RDW-CV 15.4 % (10.5-14.5); WBC 6.2 thou/uL (4.0-11.0)
--- NOTE | 2021-02-14 04:43 | NUR ---
PT HAD SITTER IN ROOM ALL SHIFT. SHE IS COMPLIANT WITH MEDICATION AND CARE. SHE RECEIVED ALL MEDS SCHEDULED. SHE DOES HAVE SOME ANXIETY AND FEAR OF PAIN AND CRIED A FEW TIMES BUT OVERALL CALM AND COOPERATIVE. NO ATIVAN GIVEN PER RECOMMENDATION. HER DRESSING ON THE RIGHT LE IS C/D/I. ENCOURAGED HYDRATION. SHE IS AGREED TO A PICC LINE PLACEMENT ON MONDAY. WILL CONTINUE TO MONITOR.
--- NOTE | 2021-02-14 19:22 | NUR ---
Pt remained A&O x4 for entire shift. Pt pleasant and cooperative with staff. After allowing this nurse to insert and IV yesterday, Pt has been compliant with meds and cares with the exception of taking blood pressures. Pt states that taking blood pressure causes too much pain so she will not allow staff to get a blood pressure. Pt knows she is to get a PICC line inserted tomorrow morning and is notably anxious about it. Pt tearful that it will be painful. Pt educated several times this shift about her infection and need for antibiotics. Pt sat up to the side of the bed for lunch and dinner. Pt was even able to stand with a walker for a minute or two so that we could change her bed sheets. Bed remained in low position, call light within reach. 1:1 sitter maintained throughout shift.
--- NOTE | 2021-02-14 19:52 | NUR ---
PT REFUSING ME TO UNWRAP HER DRESSING FOR MONDAY PICTURE ORDER/SHE YELLED AND STARTED CRYING. I WILL ATTEMPT ONCE MORE THIS SHIFT.
--- NOTE | 2021-02-14 22:57 | NUR ---
pt refusing blood pressure checks. wont let me put cuff on
--- NOTE | 2021-02-15 04:23 | NUR ---
PT SLEPT WELL ALL SHIFT, REPORTED GENERALIZED PAIN AT 10/10, REQUESTED OXYCODONE. SHE IS DRINKING AND EATING WELL, PUREWICK IN PLACE, PLENTY OF URINE OUTPUT. SHE WAS COMPLIANT WITH CARE THIS SHIFT, RECEIVED ALL MEDS SCHEDULED EXCEPT REFUSED LOVENOX AT MIDNIGHT TRAMADOL. SHE HAS SLEPT MOST ALL OF THIS SHIFT WITHOUT ANY INCIDENT. WHEN ATTEMPTING TO CHECK HER WOUND ON HER LEG SHE STARTED TO CRY AND YELL AND WAS AFRAID IT WOULD HURT. I ATTEMPTED TWICE AND SHE BECAME VERY FEARFUL AND SCARED AND ANXIOUS. HER LEG WAS ELEVATED ALL SHIFT AND APPEARED TO HAVE INTACT DRESSING. SHE IS VERY ANXIOUS ABOUT THINGS HURTING HER. WHEN FLUSHING HER IV SHE DOES START TO CRY AND SAYS IT HURTS TOO MUCH. OTHER THAN THAT SHE HAD A RESTFUL EVENING.
--- NOTE | 2021-02-15 12:49 | NUR ---
Plan repeat tele psych consult today, if Pt continues to be considered SI, Dr will need to complete an affadavit in order to initiate a 96 hour hold. Per nurse, dtr to be at the hospital around 130. Picc to be placed. CM had checked IVabx coverage last week. Pt's OOP cost is $5900, $0 had been met (this hospitalization should cover the OOP). Supplies are $107.80/week, medicatation will be $132.13/week, if Pt still requiring vanc and rocephin. CM following.
--- NOTE | 2021-02-15 14:53 | NUR ---
RIGHT BASILID VESSEL ACCESSED FOR 4 MALTESE SINGLE LUMEN PICC. LINE PRE-TRIMMED TO 42CM AND ADVANCED TO THE ZERO DIANNA WITH NO RESISTANCE MET. UPPER ARM CIRCUMFERENCE ABOVE INWSERTION SITE=14". SHERLOCK MAGNET AND 3CG CONFIRMATION OF TIP TERMINATION AT THE CAVOATIRAL JUNCTION APPRECIATED. GUIDE WIRE REMOVED, LINE FLUSHED AND INSERTION SITE DRESSED. REPORT GIVEN TO OK BETH.
--- NOTE | 2021-02-15 15:22 | NUR ---
Pt agreemeing to picc and home ivabx. CM awaiting call back from [facility] to determine if Pt's VALENTE will cover any of the costs. Pt does not want SNF. Repeat tele psych
--- NOTE | 2021-02-15 15:58 | NUR ---
WOUND NURSE: SKINNY SEEN FOR FOLLOW UP ASSESSMENT PERTAINING TO BILATERAL ANKLE AND RIGHT GREAT TOE WOUND. INSIGNIFICANT CHANGE IN WOUND CHARACTERISTICS NOTED. PATIENT IS NOT CURRENTLY TEACHEABLE. PICC WAS PLACED BY [facility] AFTER LUNCH AND DAUGHTER HAD ARRIVED. WOUNDS WERE MEASURED AND PHOTOGRAPHED BY THIS NURSE.
--- NOTE | 2021-02-15 18:05 | NUR ---
PT A&OX4 VSS. PT DECLINES BLOOD PRESSURE THIS AM. PT REMAINS ON 1:1 SAFETY PRECAUTIONS. IV TO LFA DC'D, NO LONGER PATENT AT TIME OF AM ASSESSMENT. PUREWICK INPLACE FOR URINARY INCONTINENCE. ISOLATION PRECAUTIONS R/T MRSA OF WOUNDS. PT DGTR CAME IN AT 1330 TO BE AT BEDSIDE FOR PLACEMENT OF PICC. PICC TO NICOLAS PATENT, DRESSING C/D/I. TELEPSYCH CONSULTED TO RE-EVALUATE. INFECTIOUS DISEASE ALSO ASSESSED THIS PT REMOTELY. PT DRESSINGS CHANGED, WOUNDS PHOTOGRAPHED THIS SHIFT. PRN PAIN PILLS ADMINISTERED REQUESTED. PT RESTS IN BED WITH CALL LIGHT IN REACH, WILL CONTINUE TO MONITOR.
[2021-02-16 07:45] VITALS: BP 175/81
--- NOTE | 2021-02-16 07:50 | NUR ---
PATIENT HAS RESTED THROUGHOUT MOST OF THE NIGHT. VSS ON RA AND PATIENT HAS REMAINED AFEBRILE DURING THE SHIFT. PATIENT REMAINS ON 1:1 WITH SITTER IN ROOM. PATIENT CONTINUES TO BE VERY TEARFUL WHEN AWAKENED TO GIVE MEDICATIONS ORDERED. DRESSING TO RIGHT ANKLE C/D/I AND DRESSING TO LEFT ANKLE IS C/D/I. PURE WIK IN PLACE WITH ADEQUATE YELLOW URINE OUTPUT. RIGHT UPPER ARM PICC-SL. IV ABT'S GIVEN ORDERED AND CHARTED. PATIENT REMAINS IN CONTACT PRECAUTIONS FOR MRSA OF HER WOUNDS. PATIENT INSTRUCTED TO USE CALL LIGHT WHEN NEEDING ASSISTANCE. HOURLY ROUNDS MADE. WILL CONTINUE WITH PLAN OF CARE AND NURSING TO MONITOR.
--- NOTE | 2021-02-16 12:08 | NUR ---
Repeat tele psych completed yesterday, Pt does not need inpt treatment and demostrates no cognitive impairment and understands her current health and treatment plan. Plan dc to home tomorrow. Per Kelsey, cost of IVabx at home will be $69.22/week, Pt states that she is able to afford meds. Kelsey to arrange teach with Pt's dtr and Pt. Per Pt, her nurse through [facility] will also be able to assist, nurse comes in MWF. Picc in placement. Pt in agreement with POC. Therapies to get Pt up today. Pt declining skilled.
[2021-02-16 16:01] VITALS: BP 199/106
--- NOTE | 2021-02-16 16:27 | NUR ---
PT A&OX4 VSS. DRESSINGS C/D/I. PICC TO NICOLAS PATENT, IV ABX ADMINISTERED THIS SHIFT. PUREWICK IN PLACE PER PT REQUEST FOR URINARY INCONTINENCE. FAMILY UPDATED BY PHONE THIS SHIFT. 1:[address] NELSON. PT UP TO SIDE OF BED FOR MEALS. ANTICIPATED DISCHARGE TOMORROW PER CASE MANAGEMENT. PT RESTS IN BED WITH CALL LIGHT IN REACH, WILL CONTINUE TO MONITOR.
--- NOTE | 2021-02-17 07:29 | NUR ---
PT SLEPT ON AND OFF OVERNIGHT. PURWICK IN PLACE. MOTHER ON COT INROOM OVERNIGHT. NICOLAS PICC SL IV ABX GIVEN ORDERED. WOUNDS TO BLE REDRESSED AND PICTURES OBTAINED OVERNIGHT. NO LABS THIS MORNING. PT HAS BEEN PLEASANT THIS SHIFT, FUSSY. REMAINS ON CONTACT ISOLATION FOR MRSA WOUND. PO PAIN MED GIVEN, PT CO PAIN WITH MOVEMENT CHRONIC IN NATURE. PT DETERMINED THAT SHE IS GOING HOME TODAY. PT FORGETFUL UP WITH ASSIST TO STAND AT BEDSIDE WITH WALKER, UNSTEADY. CALL LITE IN EASY REACH. BED ALARM ON FOR SAFETY. PT REFUSING TURNS OVERNIGHT, EDUCATION GIVEN.
[2021-02-17 09:00] VITALS: BP 127/76
[2021-02-17] MEDS ORDERED: ZYPREXA 5 MG TAB5 M1 PO (09:19)
[2021-02-17] MEDS ORDERED: TRAMADOL 50 MG50 MG PO (09:19)
--- NOTE | 2021-02-17 12:11 | NUR ---
Pt discharging to home today, [facility] faxed HH orders to Trae Smith from [facility] home infusions here to complete teach for home Ivabx. Plan for Pt to receive 2pm dose here at the hospital prior to dc. New cost for Pt's abx is $169.22, Pt able to afford. [facility]i faxed final orders to [facility]. Mother to transport home and is in room.
--- NOTE | 2021-02-17 12:36 | NUR ---
WOUND NURSE: PATIENT SEEN TO ADDRESS RIGHT LATERAL MALLEOLAR WOUND AND NOW MEASURES 11.0 X 4.0 X 0.5 CM. WOUND BED PRESENTS WITH RED, HYPERGRANULOMATOUS AND YELLOW TISSUE IN TE WOUND BED. DRAINAGE WITH YELLOWISH OPAQUE APPEARANCE IN LARGE AMOUNT. PERIWOUND WITH LESS REDNESS, NO WARMTH OR INDURATION. WOUND BIOPSIED AND DEBRIDED BYDR. TADEO. DRESSING CHANGED PRESCRIBED BY ME. PATIENT IS NOT TEACHEABLE.
--- NOTE | 2021-02-17 14:15 | NUR ---
RE: pharmacy vancomycin dosing. Note vancomycin trough of 26. Communication with RN: states pt discharging today. Stated (via our protocol) hold vancomycin x 24 hours, if random level </= 20 restart at 1 gm IV q12h. Follow-up per home-infusion post-discharge. Will follow until that time. Thank you.
[2021-02-17] MEDS ORDERED: CEFEPIME HCL2 GM IV (16:15)
[2021-02-17] MEDS ORDERED: VANCOCIN 125 M125 M1 IV (16:17)
--- NOTE | 2021-02-17 18:46 | NUR ---
PT WAS SUPPOSED TO DISCHARGE TODAY AND AROUND LUNCH TIME PATIENT BECAME VERY LETHARGIC AND STARTED REFUSING CARES EVEN MORE SITTING UP AT THE SIDE OF THE BED AND COULD NOT SIT UP STRAIGHT EVEN WITH PILLOWS BEHIND PT COULD NOT OPEN EYES LONG ENOUGH TO OPEN PHONE AND CALL SOMEONE WHEN TRYING TO CLEAN PT UP AND CHANGE LINENS PT COULDN'T STAND AT ALL KEPT SQUATTING DOWN UNTIL SHE SAT DISCUSSED WITH DAUGHTER AND SHE WAS CONCERNED WELL SINCE PT WOULD BE HOME BY HERSELF MOST OF THE TIME BUT EVEN WITH HER MOTHER STAYING WITH HER SHE COULDN'T HELP [facility] HOME HEALTH COMES 3XWEEK BUT PT SHOULD BE ABLE TO MANAGE BY HERSELF MOST OF THE TIME PT IS INCONTINENT AND REFUSES TO GET UP TO URINATE ASKS FOR A PUREWICK CASE MANAGEMENT IS AWARE AND WILL PAGE DR DEMETRICE BUNDY TO BE DONE TOMORROW AND IS ON HOLD AT THIS TIME
[2021-02-17 19:45] VITALS: BP 152/76
--- NOTE | 2021-02-18 09:11 | NUR ---
PT REFUSED PROTONIX AND OLANZAPINE AT THIS TIME.
[2021-02-18 11:10] LABS: PLATELET COUNT* 50 thou/uL (150-400); RDW-CV 15.9 % (10.5-14.5)
[2021-02-18 11:14] LABS: HEMATOCRIT 31.6 % (37.0-47.0); HEMOGLOBIN 10.6 gm/dL (12.0-15.0); MCH 26.4 pg (26.0-34.0); MCHC 33.5 g/dL (28.0-37.0); MCV 78.7 fL (80.0-100.0); MPV 10.8 fl. (7.2-11.1); NUCLEATED RBCS 0 /100WBC; RBC 4.01 mil/uL (4.20-5.00); WBC 6.8 thou/uL (4.0-11.0)
[2021-02-18 11:17] LABS: CALCIUM 7.9 mg/dL (8.5-10.1); CREATININE 0.8 mg/dL (0.6-1.3)
[2021-02-18 11:18] LABS: POTASSIUM 2.6 mmol/L (3.5-5.1)
[2021-02-18 11:22] LABS: ALBUMIN 1.8 g/dL (3.4-5.0); TOTAL BILIRUBIN 0.5 mg/dL (<0.1-1.0); TOTAL PROTEIN 7.1 g/dL (6.4-8.2)
--- NOTE | 2021-02-18 11:40 | NUR ---
DR. NELSON ON UNIT. NOTIFIED POTASSIUM. STATES TO GIVE PT A ONE TIME DOSE OF 40 MEQ POTASSIUM AND OK TO DISCHARGE.
[2021-02-18 11:47] VITALS: BP 144/92
[2021-02-18 11:47] LABS: ABSOLUTE BASOPHILS 0.1 thou/uL (0.0-0.2); ABSOLUTE EOSINOPHILS 0.3 thou/uL (0.0-0.7); ABSOLUTE LYMPHOCYTES 4.4 thou/uL (0.8-5.3); ABSOLUTE MONOCYTES 0.6 thou/uL (0.0-1.2); ABSOLUTE NEUTROPHILS 1.5 thou/uL (1.6-8.1); ANISOCYTOSIS 1+; ATYPICAL LYMPHS 1 %; PLATELET ESTIMATE DECREASED; POIKILOCYTOSIS 1+
[2021-02-18 11:50] VITALS: BP 144/92
--- NOTE | 2021-02-18 12:26 | NUR ---
Pt discharging today. Correct K prior to dc. Updated Sarah at [facility]. HH arranged through [email or web address]
--- NOTE | 2021-02-18 12:30 | NUR ---
PT REFUSED BP TO BE TAKEN DUE TO PAIN. ALSO, REFUSED SOME MEDICATIONS. SPOKE WITH WOUND NURSE KAROLINE. OK TO NOT TAKE A PIC OF RIGHT LOWER LEG WOUND THAT IS WRAPPED. LEFT FOOT WOUND CLEANED AND BANDAID APPLIED. PIC TAKEN OF LEFT FOOT WOUND. PT COMPLAINS OF PAIN 7/10 AT THIS TIME. PT HAS HOME HEALTH SET UP. PICC LINE REMAINS IN PLACE FOR DISCHARGE. STATES UNDERSTANDING TO D/C INSTRUCTIONS. PT TAKEN OUT VIA W/C.
[2021-02-18 20:49] VITALS: BP 144/92
[2021-02-19 18:06] LABS: HEMOGLOBIN 10.7 g/dL (11.1-15.9)
== END 2021-02-18 13:03 | disposition home health service (06) | DRG 871 ==
LOC: M.ERS 16:44 → M.TBA-ER 19:10 → M.ORTHSURG 19:10 → M.2W 19:10 → M.ORTHSURG 02-10 19:48
PROVIDERS: Family Medicine; Internal Medicine; Physician Assistant; ADMIT Internal Medicine; ATTEND Internal Medicine
PROC: 0HBRXZZ Excision of Toe Nail, External Approach (ICD-10-PCS; principal; 2021-02-09)
PROC: 05HY33Z Insertion of Infusion Device into Upper Vein, Percutaneous Approach (ICD-10-PCS; 2021-02-15)
PROC: 0HBKXZX Excision of Right Lower Leg Skin, External Approach, Diagnostic (ICD-10-PCS; 2021-02-17)
DX: A41.9 Sepsis, unspecified organism (principal); G92 Toxic encephalopathy; L97.319 Non-pressure chronic ulcer of right ankle with unspecified severity; L03.115 Cellulitis of right lower limb; L03.113 Cellulitis of right upper limb; R45.851 Suicidal ideations; M06.9 Rheumatoid arthritis, unspecified; F41.9 Anxiety disorder, unspecified; I87.2 Venous insufficiency (chronic) (peripheral); G89.29 Other chronic pain; D69.6 Thrombocytopenia, unspecified; M85.88 Other specified disorders of bone density and structure, other site; L60.3 Nail dystrophy; Z60.2 Problems related to living alone; B35.1 Tinea unguium; B96.5 Pseudomonas (aeruginosa) (mallei) (pseudomallei) as the cause of diseases classified elsewhere; B95.62 Methicillin resistant Staphylococcus aureus infection as the cause of diseases classified elsewhere; F20.9 Schizophrenia, unspecified; W06.XXXA Fall from bed, initial encounter; Y93.89 Activity, other specified; Y92.89 Other specified places as the place of occurrence of the external cause; Y99.8 Other external cause status; Z86.73 Personal history of transient ischemic attack (TIA), and cerebral infarction without residual deficits

== ENCOUNTER 2021-06-16 17:30 | Observation (INO) | payer OTHER, MEDICAID ==
[~2021-06-16] VITALS: Ht 167.6 cm; Wt 76.7 kg
[~2021-06-16 17:30] MED LIST changes: +CALCIUM + VITA1 EACH PO; +CEFEPIME HCL2 GM IV; +GLUCOSAMINE-CH1 EACH PO; +SUPER THERAVIT1 EACH PO; +VANCOCIN 125 M125 M1 IV; +ZYPREXA 5 MG TAB5 M1 PO
[2021-06-16 17:31] VITALS: BP 220/101
[2021-06-16 18:15] LABS: HEMATOCRIT 36.1 % (37.0-47.0); HEMOGLOBIN 11.6 gm/dL (12.0-15.0); MCH 25.6 pg (26.0-34.0); MCHC 32.2 g/dL (28.0-37.0); MCV 79.5 fL (80.0-100.0); MPV 8.7 fl. (7.2-11.1); NUCLEATED RBCS 0 /100WBC; PLATELET COUNT* 87 thou/uL (150-400); RBC 4.54 mil/uL (4.20-5.00); RDW-CV 20.8 % (10.5-14.5); WBC 4.4 thou/uL (4.0-11.0)
[2021-06-16 18:24] LABS: CREATININE 0.7 mg/dL (0.6-1.3)
[2021-06-16 18:28] LABS: ALBUMIN 2.6 g/dL (3.4-5.0); TOTAL BILIRUBIN 0.5 mg/dL (<0.1-1.0); TOTAL PROTEIN 9.1 g/dL (6.4-8.2)
[2021-06-16 18:56] LABS: ABSOLUTE LYMPHOCYTES 3.9 thou/uL (0.8-5.3); ABSOLUTE MONOCYTES 0.2 thou/uL (0.0-1.2); ABSOLUTE NEUTROPHILS 0.4 thou/uL (1.6-8.1); ATYPICAL LYMPHS 4 %; PLATELET ESTIMATE DECREASED
[2021-06-16 18:57] LABS: MICROCYTES Occasional
[2021-06-16 18:58] LABS: ANISOCYTOSIS 1+; POLYCHROMASIA Occasional
[2021-06-16 18:59] LABS: LARGE PLATELETS FEW
[2021-06-16 19:52] VITALS: BP 164/78
[2021-06-16 20:00] VITALS: BP 152/74
[2021-06-17 08:17] VITALS: BP 167/92
[2021-06-17 11:45] VITALS: BP 167/92
[2021-06-17 12:32] VITALS: BP 167/92
[2021-06-17 14:43] VITALS: BP 167/92
[2021-06-17] MEDS ORDERED: ROXICODONE15 MG PO (14:45)
== END 2021-06-17 18:27 | disposition home health service (06) ==
LOC: M.ERS 17:30 → M.TBA-ER 17:44 → M.2W 17:44
PROVIDERS: Emergency Medicine; ADMIT Internal Medicine; ATTEND Internal Medicine
DX: I83.013 Varicose veins of right lower extremity with ulcer of ankle (principal); L97.319 Non-pressure chronic ulcer of right ankle with unspecified severity; Z20.822 Contact with and (suspected) exposure to COVID-19; M06.9 Rheumatoid arthritis, unspecified; G89.4 Chronic pain syndrome; N81.10 Cystocele, unspecified; R53.81 Other malaise; F41.9 Anxiety disorder, unspecified; Z79.899 Other long term (current) drug therapy